=== PATIENT | female | born 1965 | race Caucasian/White ===

== ENCOUNTER 2022-03-27 12:33 | Emergency (ER) | payer SELFPAY ==
--- NOTE | 2022-03-27 | DI.CT_ITS ---
Exam(s) CT UPPER EXTREMITY RT WO EXAM: CT UPPER EXTREMITY RT WO CLINICAL HISTORY: Complex intra-articular distal humerus fracture TECHNIQUE: Imaging Protocol: Axial computed tomography images with coronal and sagittal reformatted images were created and reviewed. CONTRAST MATERIAL: Noncontrast COMPARISON: CR XR ELBOW RT COMPLETE from 03/27/2022 FINDINGS: Bones: The elbow is held in flexion by a posterior splint. There is a markedly comminuted intra-les cular fracture of the distal humerus. The there is severe displacement of the medial epicondyle medi ally with numerous comminuted fragments. There is a comminuted impacted intra-articular fracture of the medial epicondyle. Proximal radius appears intact. There is a tiny sliver of bone fractured fro m the posterior medial aspect of the olecranon. IMPRESSION: Markedly comminuted, displaced and impacted intra-articular fracture of the distal humerus. Tiny sli mark of bone is fractured from the medial aspect of the olecranon. RADIATION DOSE DELIVERED: 209.94mGy.cm Total DLP DATA REPOSITORY: All CT scans at this facility are submitted to the National Radiology Data Registry (NRDR) Dose Index Registry (DIR) with the [employer] ([employer]). RADIATION OPTIMIZATION: All CT scans at this facility use at least one of these dose optimization te chniques: automated exposure control; mA and/or kV adjustment per patient size (includes targeted exa ms where dose is matched to clinical indication); or iterative reconstruction.
[2022-03-27 13:05] VITALS: BP 100/62; PULSE 49; RESP 16; TEMP 36.7; O2SAT 99
--- NOTE | 2022-03-27 13:15 | DI.RAD_ITS ---
Exam(s) XR ELBOW RT COMPLETE EXAM: XR ELBOW RT COMPLETE CLINICAL HISTORY: fall, pain, deformity. TECHNIQUE: 2D digital imaging was performed. Three views. COMPARISON: No exams were available for comparison FINDINGS: There is a comminuted fracture of the distal humerus a mal vein both condyles. There is extension to the articular surface. There is severe displacement medially of the medial epicondyle as well as mu ltiple small comminuted fragments. There is some impaction at the capitellum. There is no dislocati on. The proximal radius and ulna appear intact shows there is significant overlap due to difficulty in positioning. IMPRESSION: Comminuted intra-articular fracture of the distal humerus with significant separation of fragments. DATA REPOSITORY: RADIATION DOSE DELIVERED:
[2022-03-27] MEDS: Acetaminophen 325 MG TAB 650 MG PO (14:07)
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
[2022-03-27] MEDS: oxyCODONE 5 MG TAB PO (15:48)
== END 2022-03-27 16:11 | disposition home or self-care (01) ==
PROVIDERS: Emergency Provider Physician Assistant
DX: S42.401A Unspecified fracture of lower end of right humerus, initial encounter for closed fracture (principal); V19.9XXA Pedal cyclist (driver) (passenger) injured in unspecified traffic accident, initial encounter
CPT/HCPCS: 99284; 73080; 73200; 99283